=== PATIENT | male | born 1980 | race Caucasian/White ===

== ENCOUNTER 2017-02-25 05:32 | Day surgery (SDC) | payer OTHER ==
--- NOTE | ~2017-02-25 | OP ---
Record Of Operation [facility] [address] [place] [address] NAME: LILIAN TEJADA : 80 STATUS : [facility] PAT#: [id number] AGE: 37 ADM/REG DATE : 02/25/17 MR#: [id number] REPORT SERV DATE: 02/25/17 DICTATED BY: ANA MORENO II DATE: 02/25/17 REPORT STATUS : Draft TRANSCRIBED BY: MODL DATE: 02/25/17 DATE OF PROCEDURE: 02/25/2017 PREOPERATIVE DIAGNOSES: 1. Right upper extremity radiculopathy. 2. 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 POSTOPERATIVE DIAGNOSES: 1. Right upper extremity radiculopathy. 2. 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 3. C5-6 extrusion. PROCEDURE: 1. C5-6 anterior interbody arthrodesis. 2. Application of prosthetic device. 3. Use of allograft substitute and bone marrow aspirate. 4. Anterior instrumentation, C5-6. 5. Use of the microscope. SURGEON: Ana Moreno M.D. FLUIDS: 1700 mL LR. ESTIMATED BLOOD LOSS: 15 mL. DRAINS: None. COMPLICATIONS: None. ANTIBIOTIC: Preoperatively. IMPLANTS: Alphatec. 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 He has failed conservative care. We discussed the pros and cons of continuing nonoperative care versus surgery. He did have significant arm and upper extremity complaints consistent with C6 radiculopathy. He does have some mild changes at C4-5 and C6-7, but primarily his pathology appears to be isolated to C5-6. We did discuss however that he may require additional surgery down the road given his early degenerative findings at these other levels. DESCRIPTION OF PROCEDURE: After informed consent was obtained, the patient was brought to the operating room at his request and general anesthesia was achieved. He was placed in supine position and the neck and iliac crest were prepped and draped in a sterile fashion. A 5 mL of bone marrow were aspirated from the right iliac crest. A right-sided incision was now performed and the retropharyngeal approach was performed and the subperiosteal exposure Record Of Operation [facility] [address] [place]. [address] NAME: LILIAN TEJADA : 80 STATUS : [facility] PAT#: [id number] AGE: 37 ADM/REG DATE : 02/25/17 MR#: [id number] REPORT SERV DATE: 02/25/17 DICTATED BY: ANA MORENO II DATE: 02/25/17 REPORT STATUS : Draft TRANSCRIBED BY: MODL DATE: 02/25/17 was completed. The Operating Room Tech retractors were placed underneath the longus colli muscles, and the Higginson pins placed into C5 and C6. The microscope was then brought into place and under microscopic visualization, the diskectomy was completed with the pituitary rongeurs, Kerrison rongeurs, and the curettes. The endplates were denuded of their cartilage. The posterior osteophytes were now removed with a high-speed queenie. Next, the posterior longitudinal ligament was taken down. Somewhat surprisingly, a moderate sized fragment was identified compressing the cord and the nerve root. This fragment was now removed and the cord and nerve root well decompressed. Next, the prosthetic device was chosen and placed at C5-6. This contained allograft substitute and bone marrow aspirate. Following removal of the Higginson pins, the anterior fixation device was placed with two screws in the C5 and C6. Multiplanar imaging confirmed acceptable placement of the implants. Please note that this was a separate plate and screw construct. At this point, the standard closure was performed following confirmation of hemostasis. Standard closure was completed followed by dressing application and the patient was then extubated and transferred to PACU in stable condition. WILLAM Ana Moreno II, M.D. / [id number] CC: Ana Moreno II, M.D.
[~2017-02-25 05:32] MED LIST: CYMBALTA30 PO; ULTRAM50 PO
== END 2017-02-25 16:47 | disposition home or self-care (01) ==
LOC: SDC 05:32
PROVIDERS: Orthopaedic Surgery
PROC: 0RG10A0 Fusion of Cervical Vertebral Joint with Interbody Fusion Device, Anterior Approach, Anterior Column, Open Approach (ICD-10-PCS; 2017-02-25)
PROC: 0RB30ZZ Excision of Cervical Vertebral Disc, Open Approach (ICD-10-PCS; 2017-02-25)
PROC: 079T3ZX Drainage of Bone Marrow, Percutaneous Approach, Diagnostic (ICD-10-PCS; principal; 2017-02-25 06:45)
DX: M48.02 Spinal stenosis, cervical region (principal); M50.122 Cervical disc disorder at C5-C6 level with radiculopathy; M19.90 Unspecified osteoarthritis, unspecified site; F41.9 Anxiety disorder, unspecified; F32.9 Major depressive disorder, single episode, unspecified; F17.210 Nicotine dependence, cigarettes, uncomplicated; Z79.899 Other long term (current) drug therapy
CPT/HCPCS: 82962; 87641; 88304; 88311; A9270-GY; C1713; J0690; J0735; J1170; J2250; J2405; J2710; J3010